=== PATIENT | female | born 1960 | race African-American/Black ===

== ENCOUNTER 2017-01-24 10:19 | Emergency (ER) | payer OTHER, MEDICAID ==
[~2017-01-24] VITALS: Ht 170.2 cm; Wt 73.0 kg
[2017-01-24 10:50] VITALS: BP 148/86
[2017-01-24] MEDS ORDERED: predniSONE 20 MG TAB PO ONE (11:00)
[2017-01-24] MEDS ORDERED: KETOROLAC 30 MG/ML VIAL IM ONE (11:00)
--- NOTE | 2017-01-24 11:10 | NUR ---
56/F C/O BACK PAIN 10/10 X 6 DAYS WITH NAUSEA; DENIES V/D. HX; HTN, CHF, SCIATICA, RHEUMATOID ARTHRITIS. SKIN IS PINK/WARM/DRY; AAOX4 WITH EVEN AND UNSTEADY GAIT; LUNGS CLEAR BL; HR EVEN AND REGULAR; PT DENIES ANY FEVER, CP, SOB, OR COUGH AT THIS TIME; PATIENT STATES PAIN OF 10/10 AT THIS TIME; VSS; PATIENT POSITIONED FOR COMFORT; HOB ELEVATED; BEDRAILS UP X2; BED DOWN. ER MD MADE AWARE OF PT STATUS.
--- NOTE | 2017-01-24 11:13 | NUR ---
PT TAKEN TO [facility]
--- NOTE | 2017-01-24 11:22 | NUR ---
PT BACK FROM [facility]
[2017-01-24 12:04] VITALS: BP 143/87
--- NOTE | 2017-01-24 12:04 | NUR ---
Patient discharged with v/s stable. Written and verbal after care instructions given and explained. Patient verbalized understanding. Ambulatory with steady gait. All questions addressed prior to discharge. Advised to follow up with PMD.
== END 2017-01-24 12:04 | disposition home or self-care (01) ==
LOC: MED 10:19
DX: M54.5 Low back pain (principal); Z88.5 Allergy status to narcotic agent
CPT/HCPCS: 72110; 96372; 99284; J1885; J7512

== ENCOUNTER 2018-02-26 11:24 | Emergency (ER) | payer OTHER, MEDICAID ==
[~2018-02-26] VITALS: Ht 170.2 cm; Wt 74.5 kg
[2018-02-26 11:30] VITALS: BP 147/83
--- NOTE | 2018-02-26 11:37 | NUR ---
PT AMBULATES TO BED 4 Addendum: 02/26/18 at 1138 by MEDHT BED 3
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
--- NOTE | 2018-02-26 11:51 | NUR ---
XRAY AT BEDSIDE
[2018-02-26] MEDS ORDERED: KETOROLAC 60 MG/2 ML VIAL IM ONE (12:40)
[2018-02-26 13:06] VITALS: BP 166/84
== END 2018-02-26 13:06 | disposition home or self-care (01) ==
LOC: MED 11:24
DX: S92.511A Displaced fracture of proximal phalanx of right lesser toe(s), initial encounter for closed fracture (principal); W22.01XA Walked into wall, initial encounter; Y93.89 Activity, other specified; Y92.89 Other specified places as the place of occurrence of the external cause; Y99.8 Other external cause status; M54.30 Sciatica, unspecified side; M06.9 Rheumatoid arthritis, unspecified; I11.0 Hypertensive heart disease with heart failure; I50.9 Heart failure, unspecified; Z88.5 Allergy status to narcotic agent
CPT/HCPCS: 73660; 96372; 99284; J1885

== ENCOUNTER 2018-08-16 14:04 | Emergency (ER) | payer OTHER, MEDICAID ==
[~2018-08-16] VITALS: Ht 170.2 cm; Wt 75.0 kg
[2018-08-16 14:14] VITALS: BP 125/72
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
--- NOTE | 2018-08-16 14:37 | NUR ---
technician terminal and repeater at bedside.
--- NOTE | 2018-08-16 15:03 | NUR ---
KAYLYNN Camacho evaluating patient at bedside.
[2018-08-16] MEDS ORDERED: KETOROLAC 30 MG/ML VIAL IM ONE (15:10)
[2018-08-16 15:30] VITALS: BP 125/72
--- NOTE | 2018-08-16 15:30 | NUR ---
Patient discharged with v/s stable. Written and verbal after care instructions given and explained. Patient alert, oriented and verbalized understanding of instructions. Ambulatory with steady gait. All questions addressed prior to discharge. ID band removed. Patient advised to follow up with PMD. Rx of ACETAMINOPHEN, IBUPROFEN given. Patient educated on indication of medication including possible reaction and side effects. Opportunity to ask questions provided and answered.
== END 2018-08-16 15:30 | disposition home or self-care (01) ==
LOC: MED 14:04
DX: S90.32XA Contusion of left foot, initial encounter (principal); I11.0 Hypertensive heart disease with heart failure; I50.9 Heart failure, unspecified; Z88.5 Allergy status to narcotic agent; W22.8XXA Striking against or struck by other objects, initial encounter; Y93.89 Activity, other specified; Y92.89 Other specified places as the place of occurrence of the external cause; Y99.8 Other external cause status
CPT/HCPCS: 29515; 73630; 96372; 99283; J1885; Q0092

== ENCOUNTER 2018-11-27 18:44 | Emergency (ER) | payer OTHER, MEDICAID ==
[~2018-11-27] VITALS: Ht 170.2 cm; Wt 75.3 kg
[2018-11-27 18:55] VITALS: BP 131/75
--- NOTE | 2018-11-27 19:02 | NUR ---
pt amb to bed 2
--- NOTE | 2018-11-27 19:10 | NUR ---
PATIENT CAME IN WITH C/O RIGHT EAR PAIN SHARP IN NATURE. PT STATES SHE HAS HX: TRIGEMINAL NEURALGIA AND THIS IS HOW SHE HAS FELT BEFORE. PT DENIES TAKING ANY PAIN MEDICATION BECAUSE IT HAS NOT HELPED IN THE PAST. PT DENIES HAVING ANY OTHER SYMPTOMS. PATIENT STATES PAIN OF 10/10 AT THIS TIME; VSS; PATIENT POSITIONED FOR COMFORT; HOB ELEVATED; BEDRAILS UP X2; BED DOWN. ER MD MADE AWARE OF PT STATUS.
[2018-11-27] MEDS ORDERED: KETOROLAC 30 MG/ML VIAL IM ONE (19:25)
[2018-11-27] MEDS ORDERED: DEXAMETHASONE 10 MG/ML VIAL IM ONE (19:25)
[2018-11-27 19:40] VITALS: BP 131/86
--- NOTE | 2018-11-27 19:40 | NUR ---
Patient discharged with v/s stable. Written and verbal after care instructions given and explained. Patient alert, oriented and verbalized understanding of instructions. Ambulatory with steady gait. All questions addressed prior to discharge. ID band removed. Patient advised to follow up with PMD. Rx of PREDNISONE 50MG, IBUPROFEN 600MG, CARBAMAZEPINE 200MG given. Patient educated on indication of medication including possible reaction and side effects. Opportunity to ask questions provided and answered.
== END 2018-11-27 19:40 | disposition home or self-care (01) ==
LOC: MED 18:44
DX: G50.0 Trigeminal neuralgia (principal); I11.0 Hypertensive heart disease with heart failure; I50.9 Heart failure, unspecified; Z88.5 Allergy status to narcotic agent
CPT/HCPCS: 96372; 99283; J1100; J1885

== ENCOUNTER 2021-02-22 11:25 | Inpatient (IN) | payer OTHER, MEDICAID, SELFPAY ==
[~2021-02-22] VITALS: Ht 167.6 cm; Wt 79.4 kg
[2021-02-22 11:28] VITALS: BP 186/107
--- NOTE | 2021-02-22 11:53 | NUR ---
DR MARCOS EXAMINING PT
--- NOTE | 2021-02-22 12:00 | NUR ---
60/F BIB SELF WITH C/O RIGHT SIDED FLANK PAIN RADIATING DOWN HER THIGH FOR 3 WEEKS. STATES SHE WAS SEEN BY HER PCP AND GIVEN PERCOCET AND HEATING PADS BUT HAS NOT EXPERIENCED RELIEF, DENIES ANY URINARY SYMPTOMS. 02/22 PAIN. MEDHX: ARTHRITIS, CHF, HTN ALLERGIES: CODEINE, MORPHINE
[2021-02-22] MEDS ORDERED: diazePAM 5 MG TAB PO ONE (12:15)
--- NOTE | 2021-02-22 12:33 | NUR ---
LAB AT BEDSIDE
[2021-02-22 13:05] LABS: BASOPHILS % (AUTO) 0.9 % (0.0-2.0); EOSINOPHILS # (AUTO) 0.2 K/uL (0-0.4); EOSINOPHILS % (AUTO) 6.7 % (0.0-4.0); HEMATOCRIT 39.8 % (36-48); HEMOGLOBIN 13.4 g/dL (12.0-16.0); LYMPHOCYTES # (AUTO) 1.4 K/uL (2.5-16.5); LYMPHOCYTES % (AUTO) 39.6 % (20.5-51.1); MEAN CORPUSCULAR HEMOGLOBIN 29 pg (27-31); MEAN CORPUSCULAR HGB CONC 34 g/dL (33-37); MEAN CORPUSCULAR VOLUME 87.5 fL (80-94); MONOCYTES # (AUTO) 0.3 K/uL (0.8-1.0); MONOCYTES % (AUTO) 7.6 % (1.7-9.3); NEUTROPHILS # (AUTO) 1.6 K/uL (1.8-7.7); NEUTROPHILS % (AUTO) 45.2 % (42.2-75.2); PLATELET COUNT (AUTO) 260 K/uL (140-450); RED BLOOD CELL COUNT(AUTO) 4.55 MIL/uL (4.20-5.40); RED CELL DISTRIBUTION WIDTH 13.5 % (11.6-13.7); WHITE BLOOD COUNT (AUTO) 3.4 K/uL (4.8-10.8)
[2021-02-22 13:16] LABS: ALBUMIN 4.2 g/dL (3.4-5.0); ANION GAP 13.3 (8-16); CARBON DIOXIDE 28.4 mmol/L (21-32); CREATININE 0.9 mg/dL (0.6-1.3); POTASSIUM 3.7 mmol/L (3.5-5.1); TOTAL BILIRUBIN 0.2 mg/dL (0.0-1.0)
[2021-02-22] MEDS ORDERED: ASPIRIN 325 MG TAB PO ONE (13:55)
[2021-02-22] MEDS ORDERED: DOCUSATE SODIUM 100 MG GELCAP PO PRN (14:05)
[2021-02-22] MEDS ORDERED: SODIUM PHOS / POTASSIUM PHOS 1 PKT PDR PO PRN (14:05)
[2021-02-22] MEDS ORDERED: ACETAMINOPHEN 325 MG TAB PO PRN (14:05)
[2021-02-22] MEDS ORDERED: NITROGLYCERIN 0.4 MG TAB SL PRN (14:05)
[2021-02-22] MEDS ORDERED: hydrALAZINE 25 MG TAB PO PRN (14:05)
[2021-02-22] MEDS ORDERED: POTASSIUM CHLORIDE 10 MEQ TABER PO PRN (14:05)
[2021-02-22] MEDS ORDERED: MAGNESIUM OXIDE 400 MG TAB PO PRN (14:05)
[2021-02-22] MEDS ORDERED: ONDANSETRON 4 MG/2 ML VIAL IM/IVP PRN (14:05)
--- NOTE | 2021-02-22 14:13 | NUR ---
BIJU SWABBED AND SENT TO LAB
[2021-02-22] MEDS: NACL 0.9% 1,000 ML IV SCH (14:39)
[2021-02-22] MEDS: PANTOPRAZOLE 40 MG INJ VIAL IVP SCH (14:39)
--- NOTE | 2021-02-22 15:00 | NUR ---
DR FINNEY AT BEDSIDE EXAMINING PT
--- NOTE | 2021-02-22 15:01 | NUR ---
DR DE LA GARZA AT BEDSIDE EXAMINING PT
[2021-02-22 15:30] LABS: MAGNESIUM 2.3 mg/dL (1.8-2.4); PHOSPHORUS 3.7 mg/dL (2.5-4.9); THYROID STIMULATING HORMONE 0.68 uIU/mL (0.34-3.74)
[2021-02-22] MEDS ORDERED: hydrALAZINE 20 MG/ML VIAL IVP PRN (15:30)
[2021-02-22] MEDS ORDERED: lisinopriL 20 MG TAB PO SCH (16:00)
--- NOTE | 2021-02-22 16:15 | NUR ---
PT STATING 02/22 PAIN. PATIENT REFUSED NITRO TAB. PT REQUESTING FOR DILAUDID, STATES "I GET THAT OVER AT [facility] FOR MY PAIN" DR FINNEY MADE AWARE.
--- NOTE | 2021-02-22 16:42 | NUR ---
PATIENT TAKEN FOR CT SCAN VIA WHEELCHAIR AT THIS TIME.
--- NOTE | 2021-02-22 17:03 | NUR ---
PT SPEAKING WITH DOCTOR ON IPAD TELEPSYCH
[2021-02-22] MEDS ORDERED: CRUSHER, PILL MC ONE (17:37)
[2021-02-22] MEDS: HYDROmorphone 2 MG TAB PO PRN (17:45)
--- NOTE | 2021-02-22 17:45 | NUR ---
PT STATES "I DONT WANT THIS IV IN ME ANYMORE. IT HURTS" IV removed, catheter intact and site benign. Applied folded 4x4 gauze and tape to stop bleeding.
--- NOTE | 2021-02-22 18:12 | NUR ---
PT PROVIDED WITH DINNER TRAY, EATING AT THIS TIME
--- NOTE | 2021-02-22 19:17 | NUR ---
REPORT RECEIVED FROM GWEN GONZALES FOR CONTINUITY OF PATIENT CARE. AT THIS TIME.
--- NOTE | 2021-02-22 19:22 | NUR ---
Pt report given to LIZ HIDALGO. Transfer of care at this time.
--- NOTE | 2021-02-22 19:40 | NUR ---
PATIENT APPEARS TO BE RESTING W EYES CLOSED R LATERAL POSITION BLANKET ON. BREATHING EVEN AND UNLABORED. PATIENT CONNECTED TO MONITOR W VSS. NAD NOTED, WILL CONTINUE TO MONITOR.
[2021-02-22] MEDS ORDERED: METOPROLOL 25 MG TAB PO SCH (21:00)
--- NOTE | 2021-02-22 21:19 | NUR ---
PATIENT WC/O 10/10 FLANK AND L SHOULDER. DENIES ANY CHEST PAIN. PATIENT REPORTS DILAUDID DOSE IS NOT ENOUGH AND NEEDS A HIGHER DOSE. ADMIN DOCTOR MADE AWARE. PER MD NOT TO GIVE DILAUDID UNTIL 6 HOURS FOLLOWING LAST DOSE. PER MD TO GIVE THE ORDERED PERCOCET OR TORADOL 30MG IVP.
--- NOTE | 2021-02-22 21:50 | NUR ---
PATIENT REPORTS SHE WANTS TO HAVE TO TORADOL IVP BUT WOULD LIKE TO SPEAK TO CHARGE NURSE. REPORTS AT HOME SHE TAKES 10MG PERCOCET AND 5MG PERCOCET ORDERED BY MD IS NOT ENOUGH. CHARGE NURSE MADE AWARE.
[2021-02-22] MEDS: carvediloL 12.5 MG TAB PO SCH (21:53)
[2021-02-22 22:00] LABS: APPEARANCE,URINE CLEAR (CLEAR); BILIRUBIN,URINE NEGATIVE (NEGATIVE); BLOOD, URINE NEGATIVE (NEGATIVE); COLOR,URINE YELLOW (YELLOW); LEUKOCYTE ESTERASE ,URINE NEGATIVE (NEGATIVE); NITRITE, URINE NEGATIVE (NEGATIVE); UGLUCOSE NEGATIVE (NEGATIVE)
[2021-02-22] MEDS ORDERED: KETOROLAC 30 MG/ML VIAL IVP SCH (22:00)
[2021-02-22] MEDS ORDERED: KETOROLAC 30 MG/ML VIAL ONE (22:02)
[2021-02-22 22:11] LABS: BARBITURATE, URINE NEGATIVE ng/ml (NEG <=200); BENZODIAZEPINE, URINE POSITIVE ng/mL (NEG <=200); CANNABINOID, URINE NEGATIVE ng/mL (NEG <=50); COCAINE, URINE NEGATIVE ng/mL (NEG <=300); OPIATE, URINE POSITIVE ng/mL (NEG <=2000); PHENCYCLIDINE SCREEN,URINE NEGATIVE ng/mL (NEG <=25)
--- NOTE | 2021-02-22 22:11 | NUR ---
20G IV INSERTED TO PATIENT R HAND. LINE PATENT, FLUSHING WELL. NS FLUIDS CONTINUED W 673ML VTBI.
--- NOTE | 2021-02-22 23:01 | NUR ---
PATIENT AMBULATED TO BATHROOM W STEADY GAIT.
--- NOTE | 2021-02-22 23:03 | NUR ---
PROVIDED PATIENT W WATER.
--- NOTE | 2021-02-22 23:28 | NUR ---
PATIENT APPEARS TO BE RESTING W EYES CLOSED IN L LATERAL POSITION, BLANKET ON W X1 SIDERAILS UP FOR PATIENT SAFETY. BED LOCKED IN LOWEST POSITION. BREATHING EVEN AND UNLABORED. NAD NOTED, WILL CONTINUE TO MONITOR.
--- NOTE | 2021-02-23 01:05 | NUR ---
NARES SWAB COLLECTED FOR MRSA FROM PATIENT NARES, SENT TO LAB.
[2021-02-23] MEDS ORDERED: CRUSHER, PILL MC ONE ×2 (01:36→08:55)
--- NOTE | 2021-02-23 01:36 | NUR ---
Shasha flaherty in ED - 02/23/21 at 0147 by VARSHAK PATIENT W C/O 02/22 BACK PAIN. PATIENT PROVIDED W HEATPAD AND EXTRA PILLOW FOR RE-POSITIONING AND COMFORT.
--- NOTE | 2021-02-23 01:36 | NUR ---
PATIENT W C/O 10/10 BACK PAIN. PATIENT PROVIDED W WARM COMPRESS AND EXTRA PILLOW FOR RE-POSITIONING AND COMFORT.
[2021-02-23] MEDS: HYDROmorphone 2 MG TAB PO PRN ×2 (01:40→08:50)
--- NOTE | 2021-02-23 01:59 | NUR ---
PATIENT APPEARS TO BE RESTING W EYES CLOSED IN L LATERAL POSITION, BLANKET ON W X1 SIDERAILS UP FOR PATIENT SAFETY. BED LOCKED IN LOWEST POSITION. BREATHING EVEN AND UNLABORED. NAD NOTED, WILL CONTINUE TO MONITOR. NS RUNNING AT 40ML/HR W 570ML VTBI.
--- NOTE | 2021-02-23 03:55 | NUR ---
PATIENT APPEARS TO BE RESTING W EYES CLOSED SUPINE POSITION BLANKET ON. BREATHING EVEN AND UNLABORED. PATIENT CONNECTED TO MONITOR W VSS. NAD NOTED, WILL CONTINUE TO MONITOR. NS RUNNING AT 40ML/HR W 470ML VTBI.
--- NOTE | 2021-02-23 06:19 | NUR ---
PATIENT REPORTING 10/10 BACK PAIN. PATIENT IS LAYING IN BED IN R LATERAL POSITION W BLANKET ON W X1 SIDERAIL UP. VSS ON MONITOR, BREATHING EVEN AND UNLABORED. NAD NOTED, WILL CONTINUE TO MONITOR. NS RUNNING AT 40ML/HR W 352 ML VTBI.
[2021-02-23] MEDS: oxyCODONE/APAP 5/325 MG 1 TAB TAB PO PRN ×2 (06:26→12:09)
[2021-02-23 06:52] LABS: BASOPHILS % (AUTO) 0.8 % (0.0-2.0); EOSINOPHILS # (AUTO) 0.2 K/uL (0-0.4); EOSINOPHILS % (AUTO) 6.5 % (0.0-4.0); HEMATOCRIT 36.7 % (36-48); HEMOGLOBIN 12.3 g/dL (12.0-16.0); LYMPHOCYTES # (AUTO) 1.5 K/uL (2.5-16.5); LYMPHOCYTES % (AUTO) 44.4 % (20.5-51.1); MEAN CORPUSCULAR HEMOGLOBIN 30 pg (27-31); MEAN CORPUSCULAR HGB CONC 34 g/dL (33-37); MEAN CORPUSCULAR VOLUME 88.8 fL (80-94); MONOCYTES # (AUTO) 0.3 K/uL (0.8-1.0); MONOCYTES % (AUTO) 8.6 % (1.7-9.3); NEUTROPHILS # (AUTO) 1.4 K/uL (1.8-7.7); NEUTROPHILS % (AUTO) 39.7 % (42.2-75.2); PLATELET COUNT (AUTO) 235 K/uL (140-450); RED BLOOD CELL COUNT(AUTO) 4.14 MIL/uL (4.20-5.40); RED CELL DISTRIBUTION WIDTH 13.5 % (11.6-13.7); WHITE BLOOD COUNT (AUTO) 3.5 K/uL (4.8-10.8)
--- NOTE | 2021-02-23 07:13 | NUR ---
Pt report given to GWEN GONZALES. Transfer of care at this time.
--- NOTE | 2021-02-23 07:13 | NUR ---
REPORT RECEIVED FROM LIZ HIDALGO FOR CONTINUITY OF CARE. PT RESTING IN BED, HAS EYES CLOSED. RESPIRATIONS EVEN AND UNLABORED. CHEST RISE IS SYMMETRICAL. IV SITE, RHAND 20G INTACT, PATENT, GOOD BLOOD RETURN. WILL CONTINUE TO MONITOR
[2021-02-23 07:16] LABS: ANION GAP 13.2 (8-16); CARBON DIOXIDE 26.6 mmol/L (21-32); CREATININE 0.7 mg/dL (0.6-1.3); POTASSIUM 3.8 mmol/L (3.5-5.1)
--- NOTE | 2021-02-23 07:30 | NUR ---
CALLED MARION RN TO GIVE REPORT, STATED "CAN YOU CALL BACK." WILL CALL BACK
--- NOTE | 2021-02-23 07:42 | NUR ---
PATIENT HAS BEEN SCREENED AND CATEGORIZED MODERATE NUTRITION RISK. PATIENT WILL BE SEEN WITHIN 3-5 DAYS OF ADMISSION. 02/25/21 02/27/[address]
--- NOTE | 2021-02-23 07:45 | NUR ---
CALLED BACK WISEManny RN, NO ANSWER. WILL CALL AGAIN
--- NOTE | 2021-02-23 08:15 | NUR ---
Patient will be admitted to care of DR FINNEY. Admited to TELEMETRY. Will go to [id number]. Belongings list completed. Report to MARION HIDALGO.
[2021-02-23] MEDS: lisinopriL 20 MG TAB PO SCH (08:48)
[2021-02-23] MEDS: ASPIRIN 81 MG TAB.CHEW PO SCH (08:48)
[2021-02-23] MEDS: carvediloL 12.5 MG TAB PO SCH ×2 (08:49→21:39)
[2021-02-23] MEDS: DULoxetine 30 MG CAPDR PO SCH (08:49)
[2021-02-23] MEDS: ATORVASTATIN 20 MG TAB PO SCH (08:49)
[2021-02-23] MEDS: PANTOPRAZOLE 40 MG INJ VIAL IVP SCH (08:49)
[2021-02-23 09:00] VITALS: BP 156/89
[2021-02-23] MEDS ORDERED: lisinopriL 5 MG TAB PO SCH (09:00)
--- NOTE | 2021-02-23 09:00 | NUR ---
RECIVED REPORT FROM ER NURSE, PT ARRIVED TO ROOM 111 SURY, VITAL SIGNS 156/89 HEART RATE 65 SAT 98% RR 18, NO SOD NOTED BREATHING EVEN UNLABORED PT IS ALERT AX4. PT COMPLAINS ABOUT PAIN GOT MEDICATED PRN ORDER, PT GOT MORNING MEDICATION TOLERATED WELL. PT HAS AN IV ON HER RIGHT HAND 20G , NS FLUIDS RUNNING AT RATE 40 .ALL SAFETY MEASURES ON PLACE CALLS LIGHT WITHIN REACH
[2021-02-23] MEDS ORDERED: hydrALAZINE 25 MG TAB PO PRN (10:10)
[2021-02-23] MEDS ORDERED: amLODIPine 5 MG TAB PO SCH (10:15)
--- NOTE | 2021-02-23 11:46 | NUR ---
PT ON BED NO COMPLAINS AT THIS TIME, NO SOD NOTED, BREATHING EVEN UNLABORED, PT ASKED TO ORDER HER A SANDWICH,ORDERED, PT GOT THE SANDWICH, ALL SAFETY MEASURES ON PLACE CALLS LIGHT WITHIN REACH
[2021-02-23 12:00] VITALS: BP 139/79
[2021-02-23] MEDS ORDERED: ZOLPIDEM 5 MG TAB PO PRN (12:15)
[2021-02-23] MEDS: HYDROmorphone 1 MG/ML AMP IVP PRN ×2 (13:13→19:18)
--- NOTE | 2021-02-23 13:30 | NUR ---
PT IN BED NO COMPLAINS NO SOD NOTED, ALL SAFETY MEASURES ON PLACE, CALLS LIGHT WITHIN REACH.
[2021-02-23] MEDS: NACL 0.9% 1,000 ML IV SCH (14:31)
--- NOTE | 2021-02-23 15:10 | NUR ---
T SITTING ON BED NO COMPLAINS, NO SOD NOTED,ALL SAFETY MEASURES ON PLACE CALLS LIGHT WITHIN REACH
[2021-02-23 16:00] VITALS: BP 125/73
--- NOTE | 2021-02-23 17:36 | NUR ---
PT SITTING ON BED NO COMPLAINS, NO SOD NOTED, ALL SAFETY MEASURES ON PLACE CALLS LIGHT WITHIN REACH
[2021-02-23] MEDS ORDERED: oxyCODONE/APAP 5/325 MG 1 TAB TAB PO PRN (18:00)
--- NOTE | 2021-02-23 19:27 | NUR ---
PT COMPLAINS ABOUT PAIN GOT MEDICATED PRN ORDER
--- NOTE | 2021-02-23 19:34 | NUR ---
FULL BEDSIDE REPORT GIVEN TO MATRIX PLATER NURSE
[2021-02-23 20:00] VITALS: BP 126/59
[2021-02-23] MEDS: PREGABALIN 50 MG CAP PO SCH (21:13)
--- NOTE | 2021-02-23 22:00 | NUR ---
patient awake alert c/o of back pain and left upper arm pain. b/p 126/59 heart rate 73 temp 98.2 no c/o of chest pain. on monitor sinus has 20 GA IN RIGHT WRIST. N.S 40 HOUR.
[2021-02-24] VITALS: BP 122/54
[2021-02-24] MEDS: HYDROmorphone 1 MG/ML AMP IVP PRN ×3 (01:24→13:48)
[2021-02-24 04:00] VITALS: BP 120/55
[2021-02-24 07:15] LABS: BASOPHILS % (AUTO) 0.9 % (0.0-2.0); EOSINOPHILS # (AUTO) 0.2 K/uL (0-0.4); EOSINOPHILS % (AUTO) 6.1 % (0.0-4.0); HEMATOCRIT 33.2 % (36-48); HEMOGLOBIN 11.2 g/dL (12.0-16.0); LYMPHOCYTES # (AUTO) 1.4 K/uL (2.5-16.5); LYMPHOCYTES % (AUTO) 40.8 % (20.5-51.1); MEAN CORPUSCULAR HEMOGLOBIN 29 pg (27-31); MEAN CORPUSCULAR HGB CONC 34 g/dL (33-37); MEAN CORPUSCULAR VOLUME 87.2 fL (80-94); MONOCYTES # (AUTO) 0.3 K/uL (0.8-1.0); NEUTROPHILS # (AUTO) 1.5 K/uL (1.8-7.7); NEUTROPHILS % (AUTO) 43.2 % (42.2-75.2); PLATELET COUNT (AUTO) 213 K/uL (140-450); RED BLOOD CELL COUNT(AUTO) 3.81 MIL/uL (4.20-5.40); RED CELL DISTRIBUTION WIDTH 13.5 % (11.6-13.7); WHITE BLOOD COUNT (AUTO) 3.5 K/uL (4.8-10.8)
[2021-02-24 07:23] LABS: ANION GAP 12.7 (8-16); CARBON DIOXIDE 27.1 mmol/L (21-32); CREATININE 0.7 mg/dL (0.6-1.3); POTASSIUM 3.8 mmol/L (3.5-5.1)
--- NOTE | 2021-02-24 07:25 | NUR ---
RECEIVED REPORT FROM CHILDRENS [employer]UB ATTENDANT NURSE FOR CONTINUITY OF CARE, POC DISCUSSED. PT IS ASLEEP IN BED WITH NO ACUTE S/S OF DISTRESS, PT ON TELE MONITOR SHOWING SINUS RYANNE AT 58. ENDORSED THAT PT IS ALERT AND ORIENTED X4, AMBULATORY, CONTINENT, AND SKIN INTACT. PT HAS A RIGHT WRIST 20G RUNNING NS @40. ALL SAFETY MEASURES IN PLACE, CALL LIGHT WITHIN REACH. WILL CONTINUE TO MONITOR.
--- NOTE | 2021-02-24 07:44 | NUR ---
PRN PAIN MEDICATION ADMINISTERED PER MD ORDER, PT TOLERATED ADMINISTRATION. IV IS PATENT AND INTACT. PT EDUCATION PROVIDED. PT VERBALIZED UNDERSTANDING. AL SAFETY MEASURES IN PLACE, CALL LIGHT WITHIN REACH. WILL CONTINUE TO MONITOR.
[2021-02-24 08:00] VITALS: BP 166/66
[2021-02-24] MEDS: PANTOPRAZOLE 40 MG INJ VIAL IVP SCH (08:27)
[2021-02-24] MEDS: carvediloL 12.5 MG TAB PO SCH (08:28)
[2021-02-24] MEDS: DULoxetine 30 MG CAPDR PO SCH (08:28)
[2021-02-24] MEDS: lisinopriL 20 MG TAB PO SCH (08:28)
[2021-02-24] MEDS: PREGABALIN 50 MG CAP PO SCH (08:28)
[2021-02-24] MEDS: ATORVASTATIN 20 MG TAB PO SCH (08:29)
[2021-02-24] MEDS: ASPIRIN 81 MG TAB.CHEW PO SCH (08:29)
--- NOTE | 2021-02-24 08:49 | NUR ---
YANELIS MEDICATION ADMINISTERED PER MD ORDER, PT TOLERATED ADMINISTRATION. ALL SAFETY MEASURES IN PLACE, CALL LIGHT WITHIN REACH. WILL CONTINUE TO MONITOR.
[2021-02-24] MEDS ORDERED: amLODIPine 5 MG TAB PO SCH (09:00)
--- NOTE | 2021-02-24 10:27 | NUR ---
PT IS RESTING IN BED WITH EYES CLOSED; FLACC 0. ALL SAFETY MEASURES IN PLACE, CALL LIGHT WITHIN REACH. WILL CONTINUE TO MONITOR.
--- NOTE | 2021-02-24 10:43 | NUR ---
OBTAINED PTS SIGNATURE ON FORM FOR OBTAINING PTS PAST MEDICAL RECORDS. OBTAINED FAX NUMBER FOR MEDICAL RECORDS DEPARTMENT AND FAXED AUTHORIZATION TO [facility].
--- NOTE | 2021-02-24 11:02 | NUR ---
RECEIVED COMPLETED FAX FORM. WILL PLACE IN CHART.
[2021-02-24] MEDS ORDERED: HYDR2TAB6 PO (11:24)
[2021-02-24] MEDS ORDERED: ATOR20TA40 PO (11:24)
[2021-02-24] MEDS ORDERED: DOCU-299 PO (11:24)
[2021-02-24] MEDS ORDERED: DULO30EC PO (11:24)
[2021-02-24] MEDS ORDERED: LISI20TA29 PO (11:24)
[2021-02-24] MEDS ORDERED: AMLO-3 PO (11:24)
[2021-02-24] MEDS ORDERED: ASPI81CT95 PO (11:24)
[2021-02-24] MEDS ORDERED: ACET-5636 PO (11:24)
[2021-02-24] MEDS ORDERED: CARV12.52 PO (11:24)
[2021-02-24 12:00] VITALS: BP 125/54
[2021-02-24] MEDS: NACL 0.9% 1,000 ML IV SCH (13:25)
--- NOTE | 2021-02-24 13:51 | NUR ---
DC PLANNIN YRS OLD FEMALE PATIENT WAS ADMITTED FROM HOME WITH A DX OF CHEST PAIN. PATIENT HAS A HX OF ARTHRITIS, HEART FAILURE CHRONIC PAIN SYNDROME HTN AND HLD. CXR NEGATIVE .CT ABD NO PULMONARY NODULE OR ACUTE CHEST FINDINGS. RAPID COVID TEST NEGATIVE. SEEN BY PHP DEVELOPER AND CLEARED PATIENT STABLE FOR DISCHARGE. CM TO FOLLOW Addendum: 02/24/21 at 1745 by Cherie Amos CM PATIENT IS A 60-YEAR-OLD FEMALE ADMITTED ON A 02/22/21 FROM THE [facility] ED DUE TO CHEST AND RADIATING PAIN DOWN HER RIGHT THIGH. EUGENIE MET WITH PATIENT AT BEDSIDE TO DISCUSS AND GATHER HER COLLATERAL INFORMATION. PATIENT REPORTED LIVING AT HOME BY HER SELF. PATIENT STATED THAT HER DAUGHTER MYA AGUILAR IS CLOSE ENOUGH FROM HER AND WILL BE HER EMERGENCY CONTACT. PER PATIENT SHE WILL BE HER DECISION MAKER IN ADVANCE DIRECTIVES. PATIENT STATED NOT HAVING A.D. IN PLACE HOWEVER; TOOK INFORMATION PACKET PROVIDED BY EUGENIE AND WILL BE COMPLETING ONE SOON. PATIENT REPORTED NOT HAVING ANY ISSUES GETTING OR TAKING MEDICATIONS PATIENT STATED THAT SHE HAS DO NOT HAVE DME AT HOME. PER PATIENT SHE WILL BE ASSISTED WITH TRANSPORTATION BY HER DAUGHTER WHO WILL PICK HER UP FROM [facility] TO TAKE HER HOME. EUGENIE INFORMED HER THAT A FOLLOW UP APPOINTMENT WILL BE NEEDED, PT REPORTED THAT HER LAST VISIT SHE HAD WITH WAS TWO WEEKS AGO. EUGENIE THANK HER FOR THE INFORMATION PROVIDED AND LEFT THE ROOM. SW WILL FOLLOW UP NEEDED.
--- NOTE | 2021-02-24 14:08 | NUR ---
PT DISCHARGE INSTRUCTIONS WENT OVER WITH PATIENT AND EDUCATED. WENT OVER THE PRESCRIPTIONS SENT TO THE PHARMACY AND LOCATION. PT VERBALIZED UNDERSTANDING AND WHEN TO FOLLOW UP WITH HER PCP AND PLAN OF CARE. PT IS IN STABLE CONDITION, CALLING NEIGHBOR FOR RIDE. PT SIGNED ALL DISCHARGE PAPERWORK AND ALL QUESTIONS HAVE BEEN ANSWERED.
--- NOTE | 2021-02-24 14:50 | NUR ---
PT HAS BEEN DISCHARGED IN STABLE CONDITION. PT IV HAS BEEN REMOVED AND CATH INTACT. PT BEEN REMOVED FROM TELE MONITOR AND MONITOR PLACED BACK IN TELE ROOM. PT HAS ALL EDUCATION, PRESCRIPTION, AND BELONGINGS. PT AMBULATED OUT OF THE HOSPITAL WITH LONNIE MA.
== END 2021-02-24 15:27 | disposition home or self-care (01) | DRG 206 ==
LOC: MED 11:25 → MTU 14:11
PROVIDERS: ADMIT Hospitalist; ATTEND Hospitalist
DX: M94.0 Chondrocostal junction syndrome [Tietze] (principal); F41.9 Anxiety disorder, unspecified; M25.512 Pain in left shoulder; M79.7 Fibromyalgia; F45.9 Somatoform disorder, unspecified; M54.32 Sciatica, left side; M54.31 Sciatica, right side; E78.5 Hyperlipidemia, unspecified; M19.90 Unspecified osteoarthritis, unspecified site; M06.9 Rheumatoid arthritis, unspecified; F17.210 Nicotine dependence, cigarettes, uncomplicated; Z20.822 Contact with and (suspected) exposure to COVID-19; F32.9 Major depressive disorder, single episode, unspecified; Z96.652 Presence of left artificial knee joint; I11.0 Hypertensive heart disease with heart failure; I50.9 Heart failure, unspecified; G89.4 Chronic pain syndrome; Z88.5 Allergy status to narcotic agent; Z98.891 History of uterine scar from previous surgery
CPT/HCPCS: 36415; 71045; 71250; 80048; 80053; 80305; 81003; 82728; 83036; 83540; 83735; 83880; 84100; 84443; 84484; 85025; 85651; 86140; 86430; 87081; 93005; 96374; 99285; C9113; J1170; J1885; Q0092

== ENCOUNTER 2021-05-07 13:59 | Emergency (ER) | payer OTHER ==
[~2021-05-07] VITALS: Ht 167.6 cm; Wt 79.4 kg
[~2021-05-07 13:59] MED LIST: ACET-5636 PO; AMLO-3 PO; ASPI81CT95 PO; ATOR20TA40 PO; CARV12.52 PO; DOCU-299 PO; DULO30EC PO; HYDR2TAB6 PO; LISI20TA29 PO
[2021-05-07 14:04] VITALS: BP 154/82
--- NOTE | 2021-05-07 14:13 | NUR ---
pt ambulated to bed 08
--- NOTE | 2021-05-07 14:26 | NUR ---
X-RAY AT BEDSIDE.
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
--- NOTE | 2021-05-07 15:16 | NUR ---
Chart checked and completed. The patient's care was reviewed and supervised by Kell hCen RN.
== END 2021-05-07 15:15 | disposition home or self-care (01) ==
LOC: MED 13:59
DX: S90.32XA Contusion of left foot, initial encounter (principal); I11.0 Hypertensive heart disease with heart failure; I50.9 Heart failure, unspecified; Z98.890 Other specified postprocedural states; Z88.5 Allergy status to narcotic agent; Z79.899 Other long term (current) drug therapy; W20.8XXA Other cause of strike by thrown, projected or falling object, initial encounter; Y93.89 Activity, other specified; Y92.89 Other specified places as the place of occurrence of the external cause; Y99.8 Other external cause status
CPT/HCPCS: 73630; 99283; Q0092

== ENCOUNTER 2021-11-23 11:04 | Emergency (ER) | payer OTHER ==
[~2021-11-23] VITALS: Ht 167.6 cm; Wt 77.2 kg
[~2021-11-23 11:04] MED LIST changes: +ASPI-1749 PO; +CARV3.12 PO; +CYAN100T21 PO; +LISI-486 PO; +VITA400T14 PO
[2021-11-23 11:05] VITALS: BP 176/107
--- NOTE | 2021-11-23 11:20 | NUR ---
PATIENT IN ROOM 3. GOWN ON PT ON BEDSIDE MONITOR
[2021-11-23] MEDS ORDERED: fentaNYL citrate 0.05 MG/ML VIAL IM ONE ×2 (12:00→14:05)
--- NOTE | 2021-11-23 12:28 | NUR ---
PT SENT TO XRAY VIA W/C
--- NOTE | 2021-11-23 12:33 | NUR ---
PT BACK FROM [facility]
--- NOTE | 2021-11-23 12:57 | NUR ---
FOOD PROVIDED TO PATIENT
--- NOTE | 2021-11-23 13:29 | NUR ---
NO CHANGE IN PATIENTS CONDITION. PAIN LEVEL 8/10. UP TO BATHROOM GAIT STEADY.
[2021-11-23] MEDS ORDERED: KETOROLAC 30 MG/ML VIAL IM ONE (13:45)
[2021-11-23 15:00] VITALS: BP 199/93
--- NOTE | 2021-11-23 15:01 | NUR ---
Chart checked and completed. The patient's care was reviewed and supervised by Kell Chen RN.
== END 2021-11-23 15:00 | disposition home or self-care (01) ==
LOC: MED 11:04
DX: S39.012A Strain of muscle, fascia and tendon of lower back, initial encounter (principal); G89.4 Chronic pain syndrome; M51.36 Other intervertebral disc degeneration, lumbar region; M25.512 Pain in left shoulder; I50.9 Heart failure, unspecified; Z79.899 Other long term (current) drug therapy; Z79.82 Long term (current) use of aspirin; Z88.5 Allergy status to narcotic agent; V89.2XXA Person injured in unspecified motor-vehicle accident, traffic, initial encounter; Y93.89 Activity, other specified; Y92.411 Interstate highway as the place of occurrence of the external cause; Y99.8 Other external cause status
CPT/HCPCS: 72100; 73030; 96372; 99284; J1885; J3010

== ENCOUNTER 2021-12-01 22:31 | Emergency (ER) | payer OTHER ==
[~2021-12-01] VITALS: Ht 167.6 cm; Wt 77.1 kg
[2021-12-01 22:31] VITALS: BP 150/83
--- NOTE | 2021-12-01 22:31 | NUR ---
TO BED , MANA FROM HOME, WITH C/O FEVER, CHEST PAIN, SHE WAS GIVEN NITRO 0.4 MG SL EN ROUTE
[2021-12-01] MEDS: ACETAMINOPHEN 325 MG TAB PO ONE (23:33)
--- NOTE | 2021-12-01 23:50 | NUR ---
PT REQUEST PILLOW AND PAIN MEDS. EVD CALLED TO GET MORE PILLOWS
[2021-12-02] MEDS ORDERED: fentaNYL citrate 0.05 MG/ML VIAL ONE (00:40)
[2021-12-02] MEDS ORDERED: KETOROLAC 15 MG/ML VIAL ONE (00:40)
[2021-12-02] MEDS: KETOROLAC 15 MG/ML VIAL IVP ONE (00:52)
[2021-12-02] MEDS: fentaNYL citrate 0.05 MG/ML VIAL IVP ONE (00:54)
[2021-12-02 01:02] LABS: BASOPHILS % (AUTO) 0.7 % (0.0-2.0); EOSINOPHILS # (AUTO) 0.1 K/uL (0-0.4); EOSINOPHILS % (AUTO) 1.7 % (0.0-4.0); HEMATOCRIT 33.8 % (36-48); HEMOGLOBIN 11.5 g/dL (12.0-16.0); LYMPHOCYTES # (AUTO) 0.8 K/uL (2.5-16.5); LYMPHOCYTES % (AUTO) 17.4 % (20.5-51.1); MEAN CORPUSCULAR HEMOGLOBIN 29 pg (27-31); MEAN CORPUSCULAR HGB CONC 34 g/dL (33-37); MEAN CORPUSCULAR VOLUME 85.9 fL (80-94); MONOCYTES # (AUTO) 0.4 K/uL (0.8-1.0); MONOCYTES % (AUTO) 8.9 % (1.7-9.3); NEUTROPHILS # (AUTO) 3.1 K/uL (1.8-7.7); NEUTROPHILS % (AUTO) 71.3 % (42.2-75.2); PLATELET COUNT (AUTO) 204 K/uL (140-450); RED BLOOD CELL COUNT(AUTO) 3.93 MIL/uL (4.20-5.40); RED CELL DISTRIBUTION WIDTH 13.4 % (11.6-13.7); WHITE BLOOD COUNT (AUTO) 4.3 K/uL (4.8-10.8)
[2021-12-02] MEDS: NACL 0.9% 1,000 ML IV ONE (01:23)
[2021-12-02 01:42] LABS: ALBUMIN 3.9 g/dL (3.4-5.0); ANION GAP 12.3 (8-16); CARBON DIOXIDE 27.2 mmol/L (21-32); CREATININE 0.9 mg/dL (0.6-1.3); POTASSIUM 3.5 mmol/L (3.5-5.1); TOTAL BILIRUBIN 0.2 mg/dL (0.0-1.0)
--- NOTE | 2021-12-02 02:00 | NUR ---
PT SLEEPING. X 2 SIDE RAIS UP. BED LOWERED.
[2021-12-02] MEDS ORDERED: NIRM1TAB PO ×2 (02:08→03:50)
[2021-12-02 03:40] VITALS: BP 141/80
--- NOTE | 2021-12-02 03:40 | NUR ---
Patient discharged with v/s stable. Written and verbal after care instructions given and explained. Patient alert, oriented and verbalized understanding of instructions. Ambulatory with steady gait. All questions addressed prior to discharge. ID band removed. Patient advised to follow up with PMD. Rx of PAXLOVID CO PACK given. Opportunity to ask questions provided and answered.
--- NOTE | 2021-12-02 03:40 | NUR ---
Chart checked and completed.
== END 2021-12-02 03:40 | disposition home or self-care (01) ==
LOC: MED 22:31
DX: U07.1 COVID-19 (principal); H92.03 Otalgia, bilateral; R50.9 Fever, unspecified; M79.10 Myalgia, unspecified site; I50.9 Heart failure, unspecified; Z88.5 Allergy status to narcotic agent; Z79.899 Other long term (current) drug therapy; Z79.82 Long term (current) use of aspirin; Z98.890 Other specified postprocedural states
CPT/HCPCS: 36415; 71045; 80053; 85025; 87426; 87804; 96361; 96374; 96375; 99285; J1885; J3010; J7030; Q0092

== ENCOUNTER 2022-11-29 15:17 | Emergency (ER) | payer OTHER ==
[~2022-11-29] VITALS: Ht 167.6 cm; Wt 69.4 kg
[~2022-11-29 15:17] MED LIST changes: +NIRM1TAB PO
[2022-11-29 15:22] VITALS: BP 114/60; PULSE 61; RESP 20; TEMP 97.6; O2SAT 99
--- NOTE | 2022-11-29 15:42 | NUR ---
Patient returned from X-Ray to bed 1.
--- NOTE | 2022-11-29 16:05 | NUR ---
62 y/o female c/o SOB, chest pain, upper and lower back pain x today. Denies any trauma, injury or fall .Patient took Ibuprofen 400mg for pain with no relief. Denies any nausea, vomiting or fevers. Patient is at 95% on room air. Medical History: CHF, Spondolosis, Sciatica ALLERGY: CODSIERRA, MORPHINEy
--- NOTE | 2022-11-29 16:12 | NUR ---
Patient being evaluated by physician at bedside.
[2022-11-29 16:33] LABS: BASOPHILS % (AUTO) 0.6 % (0.0-2.0); EOSINOPHILS # (AUTO) 0.2 K/uL (0-0.4); EOSINOPHILS % (AUTO) 5.3 % (0.0-4.0); HEMATOCRIT 35.2 % (36-48); HEMOGLOBIN 11.6 g/dL (12.0-16.0); LYMPHOCYTES # (AUTO) 2.1 K/uL (2.5-16.5); LYMPHOCYTES % (AUTO) 48.8 % (20.5-51.1); MEAN CORPUSCULAR HEMOGLOBIN 29 pg (27-31); MEAN CORPUSCULAR HGB CONC 33 g/dL (33-37); MEAN CORPUSCULAR VOLUME 87.5 fL (80-94); MONOCYTES # (AUTO) 0.3 K/uL (0.8-1.0); NEUTROPHILS # (AUTO) 1.6 K/uL (1.8-7.7); NEUTROPHILS % (AUTO) 37.3 % (42.2-75.2); PLATELET COUNT (AUTO) 336 K/uL (140-450); RED BLOOD CELL COUNT(AUTO) 4.02 MIL/uL (4.20-5.40); RED CELL DISTRIBUTION WIDTH 12.9 % (11.6-13.7); WHITE BLOOD COUNT (AUTO) 4.3 K/uL (4.8-10.8)
[2022-11-29] MEDS ORDERED: HYDROcodone/APAP 5/325 MG 1 TAB TAB PO ONE (16:50)
[2022-11-29 16:58] LABS: ALBUMIN 4.1 g/dL (3.4-5.0); ANION GAP 11.8 (8-16); CARBON DIOXIDE 29.2 mmol/L (21-32); CREATININE 0.8 mg/dL (0.6-1.3); TOTAL BILIRUBIN 0.2 mg/dL (0.0-1.0)
[2022-11-29] MEDS ORDERED: oxyCODONE/APAP 5/325 MG 1 TAB TAB PO ONE (17:15)
[2022-11-29 19:00] VITALS: BP 107/64; PULSE 58; RESP 18; TEMP 96.2; O2SAT 95
--- NOTE | 2022-11-29 19:00 | NUR ---
Patient discharged with v/s stable. Written and verbal after care instructions given. Patient verbalized understanding. Ambulatory with steady gait. All questions addressed prior to discharge. Advised to follow up with PMD.
--- NOTE | 2022-11-29 19:05 | NUR ---
The patient's care was reviewed and supervised by GOLD PIRES RN.
== END 2022-11-29 19:00 | disposition home or self-care (01) ==
LOC: MED 15:17
DX: M54.50 Low back pain, unspecified (principal); R06.02 Shortness of breath; I50.9 Heart failure, unspecified; Z88.5 Allergy status to narcotic agent; Z79.899 Other long term (current) drug therapy
CPT/HCPCS: 36415; 71045; 80053; 83880; 84484; 85025; 85379; 93005; 99285

== ENCOUNTER 2023-01-06 09:06 | Emergency (ER) | payer OTHER ==
[~2023-01-06] VITALS: Ht 170.2 cm; Wt 68.0 kg
[2023-01-06 09:52] VITALS: BP 141/105; PULSE 67; RESP 18; TEMP 98.1; O2SAT 100
[2023-01-06 13:27] VITALS: BP 134/89; PULSE 71; RESP 14; TEMP 98.2; O2SAT 100
== END 2023-01-06 13:29 | disposition home or self-care (01) ==
LOC: MED 09:06
DX: S90.112A Contusion of left great toe without damage to nail, initial encounter (principal); R03.0 Elevated blood-pressure reading, without diagnosis of hypertension; I50.9 Heart failure, unspecified; Z88.5 Allergy status to narcotic agent; Z79.899 Other long term (current) drug therapy; W20.8XXA Other cause of strike by thrown, projected or falling object, initial encounter; Y93.89 Activity, other specified; Y92.89 Other specified places as the place of occurrence of the external cause; Y99.8 Other external cause status
CPT/HCPCS: 73630; 99283

== ENCOUNTER 2023-01-18 20:05 | Emergency (ER) | payer OTHER ==
[~2023-01-18] VITALS: Ht 170.2 cm; Wt 70.3 kg
[2023-01-18 20:47] VITALS: BP 135/79; PULSE 79; RESP 18; TEMP 97.6; O2SAT 100
== END 2023-01-18 23:59 | disposition left against medical advice (07) ==
LOC: MED 20:05
DX: M54.50 Low back pain, unspecified (principal); Z53.21 Procedure and treatment not carried out due to patient leaving prior to being seen by health care provider
CPT/HCPCS: 99281

== ENCOUNTER 2023-06-28 14:01 | Emergency (ER) | payer OTHER ==
[~2023-06-28] VITALS: Ht 170.2 cm; Wt 67.6 kg
[2023-06-28 14:14] VITALS: BP 169/87; PULSE 86; RESP 18; TEMP 96.2; O2SAT 100
[2023-06-28 14:47] LABS: BASOPHILS % (AUTO) 0.6 % (0.0-2.0); EOSINOPHILS # (AUTO) 0.2 K/uL (0-0.4); EOSINOPHILS % (AUTO) 3.4 % (0.0-4.0); HEMOGLOBIN 12.8 g/dL (12.0-16.0); LYMPHOCYTES # (AUTO) 1.6 K/uL (2.5-16.5); LYMPHOCYTES % (AUTO) 35.6 % (20.5-51.1); MEAN CORPUSCULAR HEMOGLOBIN 29 pg (27-31); MEAN CORPUSCULAR HGB CONC 34 g/dL (33-37); MEAN CORPUSCULAR VOLUME 86.2 fL (80-94); MONOCYTES # (AUTO) 0.3 K/uL (0.8-1.0); MONOCYTES % (AUTO) 5.8 % (1.7-9.3); NEUTROPHILS # (AUTO) 2.5 K/uL (1.8-7.7); NEUTROPHILS % (AUTO) 54.6 % (42.2-75.2); PLATELET COUNT (AUTO) 254 K/uL (140-450); RED BLOOD CELL COUNT(AUTO) 4.41 MIL/uL (4.20-5.40); RED CELL DISTRIBUTION WIDTH 14.7 % (11.6-13.7); WHITE BLOOD COUNT (AUTO) 4.5 K/uL (4.8-10.8)
[2023-06-28 14:57] LABS: ANION GAP 6.6 (8-16); CALCIUM 9.6 mg/dL (8.5-10.1); POTASSIUM 3.6 mmol/L (3.5-5.1)
[2023-06-28] MEDS: NAPROXEN 500 MG TAB PO ONE (15:41)
[2023-06-28 16:05] VITALS: O2SAT 100
[2023-06-28] MEDS ORDERED: NAPR-54 PO (16:37)
[2023-06-28 17:02] VITALS: BP 169/87; PULSE 86; RESP 18; TEMP 96.2; O2SAT 100
== END 2023-06-28 17:03 | disposition home or self-care (01) ==
LOC: MED 14:01
DX: R07.9 Chest pain, unspecified (principal); I11.0 Hypertensive heart disease with heart failure; I50.9 Heart failure, unspecified; Z86.73 Personal history of transient ischemic attack (TIA), and cerebral infarction without residual deficits; Z79.899 Other long term (current) drug therapy; Z79.82 Long term (current) use of aspirin; Z88.5 Allergy status to narcotic agent
CPT/HCPCS: 36415; 71045; 80048; 84484; 85025; 93005; 99285